=== PATIENT | male | born 1970 | race Caucasian/White ===

== ENCOUNTER 2016-10-21 13:40 | Emergency (ER) | payer OTHER ==
[~2016-10-21] VITALS: Ht 175.3 cm; Wt 123.7 kg
[~2016-10-21 13:40] MED LIST: DAILY VITAMIN1 EAC8 PO; FLEXERIL10 MG PO; GLUCOPHAGE500 MG PO; NAPROXEN500 MG PO; PRILOSEC10 MG PO; PRILOSEC20 MG PO; TRAMADOL HCL50 MG PO
[2016-10-21 15:01] LABS: HEMATOCRIT 46.4 % (38.0-50.0); MCH 29.2 PG (29.0-34.0); MCHC 34.9 G/DL (30.0-36.0); MCV 83.6 FL (86-99); MEAN PLAT.VOLUME 10.4 uM^3 (9.0-12.4); PLATELET COUNT 261 K/uL (156-360); RBC DIS.WIDTH-CV 12.3 % (11.8-14.6); RBC DIS.WIDTH-SD 37.4 % (39-53); RED BLOOD COUNT 5.55 M/uL (4.00-5.50); WHITE BLOOD COUNT 7.2 K/uL (4.1-10.2)
[2016-10-21 15:13] LABS: CHLORIDE 103 mEq/L (99-109); POTASSIUM 4.4 mEq/L (3.7-5.4); SODIUM 140 mEq/L (136-147)
[2016-10-21 15:14] LABS: GLUCOSE 208 mg/dL (70-99)
[2016-10-21 15:16] LABS: ANION GAP 13 MEQ/L (2-14)
[2016-10-21 15:18] LABS: GFR ESTIMATE (CALCULATED) > 59 mL/min/
[2016-10-21 15:19] LABS: UREA NITROGEN (BUN) 8 mg/dL (9-23)
[2016-10-21] MEDS ORDERED: PREDNISONE10 MG PO (15:59)
[2016-10-21] MEDS ORDERED: VALTREX1000 MG PO (15:59)
[2016-10-21 16:19] VITALS: BP 149/105
== END 2016-10-21 16:28 | disposition home or self-care (01) ==
LOC: EME 13:40
DX: G51.0 Bell's palsy (principal); R73.9 Hyperglycemia, unspecified; R03.0 Elevated blood-pressure reading, without diagnosis of hypertension
CPT/HCPCS: 70450; 80048; 85027; 86618; 99281; 99284; J7512